=== PATIENT | female | born 1940 | race Caucasian/White ===

== ENCOUNTER 2022-05-14 08:38 | Emergency (ER) | payer MEDICAID, SELFPAY ==
[2022-05-14 08:40] VITALS: BP 149/117; PULSE 143; RESP 18; TEMP 36.2; O2SAT 97; BMI 23.4
[2022-05-14 08:46] VITALS: BP 134/58; PULSE 84; RESP 18; TEMP 36.5; O2SAT 95
[2022-05-14 08:48] VITALS: BP 134/58; PULSE 84; RESP 18; TEMP 36.5; O2SAT 94
[2022-05-14] MEDS: Loperamide 2 MG Capsule 4 MG PO (09:15)
[2022-05-14] MEDS: Ondansetron 4 MG/2 ML Vial IV (09:15)
[2022-05-14 09:20] LABS: Absolute Lymphocyte Count 0.53 X10^3/uL (0.83-4.51); Absolute Neutrophil Count 6.5 X10^3/uL (2.0-7.7); Basophil# 0.03 X10^3/uL; Basophil% 0.4 % (0-1); Eosinophil# 0.09 X10^3/uL; Eosinophils% 1.1 % (0-5); Hematocrit 29.4 % (37-47); Lymphocyte # 0.53 X10^3/ul (0.83-4.51); Lymphocyte % 6.7 % (19-41); Mean Corpuscular Hgb 33.2 pg (27.0-32.0); Mean Corpuscular Volume 97.7 fL (81-99); Mean Platelet Vol. 7.6 fl (6.2-12.0); Monocyte# 0.72 X10^3/uL; Monocyte% 9.1 % (0-10); NRBC Flagged by Analyzer 0 % (0-5); Neutrophil # 6.46 X10^3/uL (2.7-7.7); Neutrophil % 82.2 % (47-70); POSITIVE DIFFERENTIAL YES; Platelet Count 537 K/mm3 (150-450); RBC Distribution Width CV 12.4 % (11.6-14.6); RBC Distribution Width SD 44.8 fl (35.1-43.9); Red Blood Count 3.01 M/mm3 (4.2-5.4); White Blood Count 7.9 K/mm3 (4.4-11.0)
[2022-05-14 09:21] LABS: Differential Indicated SCAN CRITERIA MET
--- NOTE | 2022-05-14 09:28 | EDS_ITS ---
HPI HPI - GI History of Present Illness Chief Complaint: Nausea/Vomiting/Diarrhea Detail of Chief Complaint: Abdominal discomfort with nausea, vomiting diarrhea that started 2 to 3 day Informant: patient and family Abdominal Pain/Flank Pain Onset: Days Context: Sudden Onset Timing: Intermittent and Waxes and wanes Quality: Aching and Cramping Location: Diffuse Current Severity: Mild Maximum Severity: Moderate Worsened by: Nothing Relieved by: Nothing Nausea/Vomiting/Emesis GI Symptom: Positive for Nausea and Vomiting Onset: Days (3-4 times at night) Quality: Negative for Nonbilious, Blood streaks, Coffee ground or Hematemesis Diarrhea/Melena/Hematochezia GI Symptom: Positive for Diarrhea; Negative for Melena or Hematochezia Onset: Yesterday Stool Quality: Positive for Loose and Watery Severity: Moderate Associated Symptoms Associated Symptoms: Negative for Dysuria, Frequency, Hematuria or Urgency Narrative Narrative: Patient is an elderly woman who is a poor informant. She presents because of abdominal pain with nausea, vomiting diarrhea That started 2 to 3 days ago. She does report diffuse crampy abdominal pain. She denies ill contacts. She denies fever, chills night sweats. She does endorse dry mouth, thirst and orthostatic symptoms. Patient does endorse decreased urine output. She denies frequency or urgency. She did report dysuria. The dysuria started 3 days ago. She denies blood or mucus in her diarrhea. She denies coffee-ground appearing emesis or blood in her emesis. She has no other complaints. Prior similar symptoms: No Recent Illness/Hospitalization: No [facility] Medical History Bilateral cataracts Diabetes High cholesterol Hypertension Home Medications acetaminophen 325 mg tablet 650 mg PO Q6H PRN Pain 05/14/22 [History Last Taken Unknown] albuterol sulfate 90 mcg/actuation aerosol inhaler (ProAir HFA) 2 puff inhalation Q6H PRN Shortness Of Breath Or Wheezing 05/14/22 [History Last Taken Unknown] aspirin 81 mg tablet,delayed release (Ecotrin Low Strength) 81 mg PO DAILY 05/14/22 [History Last Taken Unknown] atorvastatin 80 mg tablet 80 mg PO QHS 05/14/22 [History Last Taken Unknown] calcium carbonate 600 mg-vitamin D3 10 mcg (400 unit) tablet 1 tab PO BID 05/14/22 [History Last Taken Unknown] cyanocobalamin (vitamin B-12) 1,000 mcg/mL injection solution 100 mcg IM QMONTH 05/14/22 [History Last Taken Unknown] lisinopril 10 mg tablet 10 mg PO DAILY 05/14/22 [History Last Taken Unknown] loperamide 2 mg capsule (Imodium A-D) 2 mg PO Q4H PRN loose stool #10 caps 05/14/22 [Rx Last Taken Unknown] lorazepam 0.5 mg tablet 0.5 mg PO BID PRN Anxiety 05/14/22 [History Last Taken Unknown] magnesium oxide 400 mg PO BID 05/14/22 [History Last Taken Unknown] metformin 1,000 mg tablet 1,000 mg PO BID 05/14/22 [History Last Taken Unknown] metoprolol succinate 100 mg tablet,extended release 24 hr 100 mg PO DAILY 05/14/22 [History Last Taken Unknown] naproxen 500 mg tablet 500 mg PO BID 05/14/22 [History Last Taken Unknown] nitroglycerin 0.4 mg sublingual tablet 0.4 mg sublingual Q5M PRN Chest Pain 05/14/22 [History Last Taken Unknown] ondansetron 4 mg disintegrating tablet 4 mg PO Q8H PRN Nausea 05/14/22 [History Last Taken Unknown] ondansetron 4 mg disintegrating tablet 4 mg PO Q8H PRN PRN Nausea #5 tabs 05/14/22 [Rx Last Taken Unknown] oxybutynin chloride 5 mg tablet,extended release 24 hr (Ditropan XL) 5 mg PO DAILY 05/14/22 [History Last Taken Unknown] pantoprazole 40 mg tablet,delayed release 40 mg PO DAILY 05/14/22 [History Last Taken Unknown] phenytoin sodium extended 100 mg capsule (Dilantin Extended) 100 mg PO TID 05/14/22 [History Last Taken Unknown] sertraline 100 mg tablet 100 mg PO DAILY 05/14/22 [History Last Taken Unknown] Allergy/AdvReac Type Severity Reaction Status Date / Time bee venom protein (honey bee) Allergy PT UNSURE Verified 05/14/22 08:55 OF REACTION buspirone [From BuSpar] Allergy PT UNSURE Verified 05/14/22 08:55 OF REACTION Penicillins [PCN] Allergy PT UNSURE Verified 05/14/22 08:55 OF REACTION Surgical History History of bilateral hip replacements History of right knee surgery Social History (Updated 05/14/22 @ 09:[address] Ehsan Tovar MD) household members: family Smoking Status: Former smoker substance use type: does not use ROS ROS ED Constitutional Constitutional ED: Denies chills, fever(s), subjective, sweats or weight loss ENT ENT ED: Denies ear pain, rhinorrhea or sore throat Cardiovascular Cardiovascular: Denies chest pain, orthopnea, palpitations, paroxysmal nocturnal dyspnea or racing heartbeat Respiratory/Chest Respiratory/Chest: Denies cough, dyspnea, dyspnea on exertion, orthopnea or paroxysmal nocturnal dyspnea Gastrointestinal Gastrointestinal: Reports abdominal pain, diarrhea, nausea and vomiting; Denies constipation or melena Genitourinary Genitourinary ED: Reports dysuria; Denies hematuria or urinary frequency Musculoskeletal Musculoskeletal: Denies arthralgias, back pain, myalgias or neck pain Integumentary Denies abscess, Abrasions or rash Neurologic Neurologic: Denies headache(s), paresthesias or weakness Endocrine Endocrinology: Denies polydipsia, polyphagia or polyuria Hematologic/Lymphatic Hematologic/Lymphatic: Denies easy bleeding or easy bruising EXAM Physical Exam Const Vital Signs: 05/14/22 08:40 05/14/22 08:46 05/14/22 08:48 Temperature 97.2 F L 97.7 F L 97.7 F L Temperature Source Temporal Oral Oral Pulse Rate 143 H 84 84 Pulse Rate [Lying] Pulse Rate [Sitting (for 1 minute prior to obtaining)] Pulse Rate [Standing (for 1 minute prior to obtaining)] Respiratory Rate 18 18 18 Blood Pressure 149/117 H 134/58 H 134/58 H Blood Pressure [Lying] Blood Pressure [Sitting (for 1 minute prior to obtaining)] Blood Pressure [Standing (for 1 minute prior to obtaining)] Blood Pressure Mean 127 83 83 Blood Pressure Mean [Lying] Blood Pressure Mean [Sitting (for 1 minute prior to obtaining)] Blood Pressure Mean [Standing (for 1 minute prior to obtaining)] Pulse Ox 97 95 94 Oxygen Delivery Method Room Air Room Air Room Air 05/14/22 09:50 05/14/22 09:53 Temperature 97.9 F Temperature Source Oral Pulse Rate 76 Pulse Rate [Lying] 75 Pulse Rate [Sitting (for 1 minute prior to obtaining)] 77 Pulse Rate [Standing (for 1 minute prior to obtaining)] 84 Respiratory Rate 17 Blood Pressure 122/57 H Blood Pressure [Lying] 122/59 H Blood Pressure [Sitting (for 1 minute prior to obtaining)] 133/66 H Blood Pressure [Standing (for 1 minute prior to obtaining)] 120/57 L Blood Pressure Mean 78 Blood Pressure Mean [Lying] 80 Blood Pressure Mean [Sitting (for 1 minute prior to obtaining)] 88 Blood Pressure Mean [Standing (for 1 minute prior to obtaining)] 78 Pulse Ox 93 Oxygen Delivery Method Room Air Positive well nourished and well developed; Negative for unkempt Constitutional Narrative: Patient does appear pale. General Appearance ED: well developed, NAD and pallor; Negative for unkempt HEENT Reports TM's clear and dry mucous membranes HEENT Narrative: Nares patent. Uvula midline. normocephalic and atraumatic Tympanic Membrane ED: Yes TM's clear Mouth ED: Yes dry mucous membranes Mouth: dry mucous membranes Eyes PERRL and EOMs intact bilaterally General Eye ED: Yes pale conjunctiva; Negative for scleral icterus Neck no lymphadenopathy, supple and no JVD Resp normal respiratory effort and clear to auscultation bilaterally Cardio regular rate, regular rhythm, S1 normal heart sound, S2 normal heart sound and no murmurs GI non-distended and no masses; Negative for non-tender Inspection: Negative for abdominal distention Auscultation: hypoactive bowel sounds Palpation: soft and tender other (Diffuse tenderness); Negative for guarding, rigid, hepatomegaly, splenomegaly, hernia, mass or pulsatile mass Back/Spine no CVA tenderness Thoracic Spine / Upper Back: Negative for thoracic spinal tenderness Lumbar Spine / Lower Back: Negative for lumbar spinal tenderness Extremity full ROM General Extremety ED: Negative for edema or tenderness General Extremity: Negative for edema Neuro CN's II-XII intact bilaterally, moves all extremities and no sensory deficits noted Sensorium / Orientation: alert Motor Exam: strength 5/5 throughout Psych mental status grossly normal Appearance: Negative for unkempt Skin no wounds General Skin Exam: pallor; Negative for jaundice Lesions: no lesions Rashes: no rashes MDM MDM MDM Narrative Medical decision making narrative: Suspect patient has viral gastroenteritis. Will obtain CBC to assess H&H and differential. Basic metabolic panel to assess glucose since she is diabetic as well as electrolytes and specifically rule out hypokalemia and assess renal function. Since patient only weighs 54 kg she received a 10 cc/kg bolus of normal saline. She was treated with Imodium and Zofran for her diarrhea and vomiting respectively. Patient was reassessed at 1021. She reports feeling better. She passed p.o. challenge. Lab Data Attestation: I reviewed the patient's lab results. Lab results narrative: Patient has mild anemia. Basic metabolic panels marked for glucose of 174. Will order p.o. challenge. Labs: Laboratory Results - last 24 hr 05/14/22 05/14/22 09:11 09:11 WBC 7.9 RBC 3.01 L Hgb 10.0 L Hct 29.4 L MCV 97.7 MCH 33.2 H MCHC 34.0 RDW Std Deviation 44.8 H RDW Coeff of Irineo 12.4 Plt Count 537 H MPV 7.6 Immature Gran % (Auto) 0.500 Neut % (Auto) 82.2 H Lymph % (Auto) 6.7 L [place] % (Auto) 9.1 Eos % (Auto) 1.1 Baso % (Auto) 0.4 Absolute Neuts (auto) 6.5 Absolute Lymphs (auto) 0.53 L Nucleated RBC % 0 Differential Comment COMMENT Sodium 132 L Potassium 4.1 Chloride 99 Carbon Dioxide 26.0 Anion Gap 7 BUN 9 Creatinine 0.57 Estim Creat Clear Calc 32.77 Est GFR (MDRD) Af Amer 131 Est GFR (MDRD) Non-Af 109 BUN/Creatinine Ratio 15.8 Glucose 174 H Calcium 9.0 Discharge Plan Triage Chief Complaint: Nausea/Vomiting/Diarrhea ED Provider: Ehsan Tovar Dx/Rx/DC Orders Clinical Impression: Abdominal pain, vomiting, and diarrhea, Dehydration, mild, Hyperglycemia due to type 2 diabetes mellitus, Anemia in chronic illness, Orthostatic hypotension, Sinus tachycardia Instructions: ED Diet Vomiting Diarrhea Prescriptions: New ondansetron [ondansetron] 4 mg tablet,disintegrating 4 mg PO Q8H PRN PRN (Reason: Nausea) Qty: 5 0RF loperamide [Imodium A-D] 2 mg capsule 2 mg PO Q4H PRN (Reason: loose stool) Qty: 10 0RF Rx Instructions: administer after each loose stool until symptoms controlled; do not exceed 8 mg per 24 hrs No Action atorvastatin 80 mg Tablet 80 mg PO QHS acetaminophen 325 mg Tablet 650 mg PO Q6H PRN (Reason: Pain) aspirin [Ecotrin Low Strength] 81 mg Tablet,Delayed Release (Dr/Ec) 81 mg PO DAILY cyanocobalamin (vitamin B-12) [Vitamin B-12] 1,000 mcg/mL Solution 100 mcg IM QMONTH lisinopril 10 mg Tablet 10 mg PO DAILY calcium carbonate-vitamin D3 600 mg-10 mcg (400 unit) Tablet 1 tab PO BID metoprolol succinate 100 mg Tablet Extended Release 24 Hr 100 mg PO DAILY lorazepam 0.5 mg Tablet 0.5 mg PO BID PRN (Reason: Anxiety) metformin 1,000 mg Tablet 1,000 mg PO BID nitroglycerin 0.4 mg Tablet, Sublingual 0.4 mg SUBLINGUAL Q5M PRN (Reason: Chest Pain) Rx Instructions: do not exceed 3 doses per episode oxybutynin chloride [Ditropan XL] 5 mg Tablet Extended Release 24hr 5 mg PO DAILY ondansetron 4 mg Tablet,Disintegrating 4 mg PO Q8H PRN (Reason: Nausea) naproxen 500 mg Tablet 500 mg PO BID magnesium oxide 400 mg magnesium Tablet 400 mg PO BID sertraline 100 mg Tablet 100 mg PO DAILY phenytoin sodium extended [Dilantin Extended] 100 mg Capsule 100 mg PO TID pantoprazole 40 mg Tablet,Delayed Release (Dr/Ec) 40 mg PO DAILY albuterol sulfate [ProAir HFA] 90 mcg/actuation Hfa Aerosol Inhaler 2 puff INHALATION Q6H PRN (Reason: Shortness Of Breath Or Wheezing) Primary Care Provider: DENAE HALLMAN Referrals: DENAE HALLMAN [Other] Disposition Disposition: Home, Self Care
[2022-05-14 09:34] LABS: Anion Gap 7 (5-15); BUN 9 mg/dL (7-18); BUN/Creat Ratio 15.8 RATIO (10-20); Chloride 99 mmol/L (98-107); Creatinine, Serum 0.57 mg/dL (0.55-1.02); EST Glomerular Filtration Rate 109 mL/min (>60); Est Glom Filt Rate - Afr Amer 131 mL/min (>60); Estimated Creatinine Clearance 32.77 ml/min; Glucose 174 mg/dL (74-106); Potassium 4.1 mmol/L (3.5-5.1); Sodium Level 132 mmol/L (136-145)
[2022-05-14 09:50] VITALS: BP 122/57; PULSE 76; RESP 17; TEMP 36.6; O2SAT 93
[2022-05-14 09:53] VITALS: BP 120/57; BP 122/59; BP 133/66; PULSE 75; PULSE 77; PULSE 84
== END 2022-05-14 10:33 | disposition home or self-care (01) ==
PROVIDERS: Emergency Provider Emergency Medicine; Visit Provider Emergency Medicine
DX: R11.2 Nausea with vomiting, unspecified (principal); E11.65 Type 2 diabetes mellitus with hyperglycemia; R10.9 Unspecified abdominal pain; R19.7 Diarrhea, unspecified; E86.0 Dehydration; I95.1 Orthostatic hypotension; E78.00 Pure hypercholesterolemia, unspecified; I10 Essential (primary) hypertension; D63.8 Anemia in other chronic diseases classified elsewhere; R00.0 Tachycardia, unspecified; Z79.82 Long term (current) use of aspirin; Z79.84 Long term (current) use of oral hypoglycemic drugs; Z79.899 Other long term (current) drug therapy; Z87.891 Personal history of nicotine dependence
CPT/HCPCS: 80048; 85025; 96361; 96374; 99285; J7040; A4216; J2405